=== PATIENT | female | born 1955 | race Caucasian/White ===

== ENCOUNTER 2019-02-20 08:53 | Day surgery (SDC) | payer BC, SELFPAY ==
[2019-02-20] VITALS (7 sets, daily range): BP systolic 94–130; BP diastolic 57–83; PULSE 74–86; RESP 16–18; TEMP 36.3–36.7; O2SAT 94–97; BMI 38.3
--- NOTE | 2019-02-20 | BRBX_PTH ---
PATIENT: ADENIKE PARRISH LOC: [facility] [place] U#:[id number] AGE/SX: 63/F ROOM: RE02/20/[address]: Dr. Lizz Gusman MD : [id number] BED: DIS: 02/20/2019 SPEC #: [id number] RECD: 02/20/19 13:28 STATUS: LISA REAutumn #: [id number] AYALA: 02/20/19 00:[address]: Lizz Gusman DEPT: SURGICAL PATHOLOGY RECD BY: Bruce George ENTERED: 02/20/19 13:29 SP TYPE: BREAST BX NOAH DR: Dr. Jake Castillo DO Tissues: Left breast, NOS Procedures: Surgery Specimen Level IV HEADER OPERATION: Left breast biopsy via wire localization PRE-OP DIAGNOSIS: Atypical ductal hyperplasia left breast TISSUE SUBMITTED: Left breast tissue MICROSCOPIC DIAGNOSIS Left breast, excision via wire localization: Focal intraductal hyperplasia with minimum atypia. Focal minimal fibrocystic changes. Focal changes consistent with previous biopsy site. Negative for malignancy. SJ:rg 02/23/19 COMMENT Case has been reviewed in consultation with Dr. Morgan who concurs with the above diagnosis. IDC:AM MICROSCOPIC DESCRIPTION Slides are reviewed. GROSS DESCRIPTION Received fresh then postfixed in formalin is one container labeled with the patient's name and designated left breast tissue. The specimen consists of an irregular fragment of yellow fatty tissue measuring 5 x 3.5 x 2.5 cm and weighing 17 grams. The specimen contains a metallic wire. No orientation is provided. The specimen is inked and serial sections reveal yellow cut surfaces without areas of distinct mass or fibrous streaks. The specimen is serially sectioned and totally submitted in 9 cassettes after additional fixation. / AM:sp 02/21/19 TC: CPT: 14353
--- NOTE | 2019-02-20 09:15 | BI_ITS ---
SURGICAL BREAST SPECIMEN RADIOGRAPH CLINICAL: Document presence of tissue clip marker in biopsy specimen. FINDINGS: Specimen shows presence of tissue clip marker. Electronically Signed: Darci Mcdermott, at 12:24 EDT , Service support , BI/Breast Biopsy Specimen
--- NOTE | 2019-02-20 10:50 | OP.PCM_ITS ---
Report of Operation Date of Procedure: 02/20/19 Pre-Operative Diagnosis: atypical ductal hyperplasia of left breast Post-Operative Diagnosis: same Surgery/Procedure Performed:: left breast biopsy via wire localization Description of Surgical Findings:: lesion in lower medial aspect of left breast Type of Anesthesia:: Local MAC Anesthesiologist: Ramya Ford Specimen's removed: left breast tissue Estimated Blood Loss (mL): minimal Fluids Replaced: 500 ml RL Description of Procedure: After informed consent was given, the patient was brought into the Breast Stereotactic Radiology suite. Appropriate time out protocol was followed. She was then placed in the prone position on the [place] stereotactic table. The patient?s left breast was placed in the opening at the head of the table. A process development manager compression mammogram was then obtained in the medial-lateral view. The marker clip that was previously placed was identified. Stereo pictures of the lesion were then taken for XYZ coordinates. The Kopans needle was then positioned where it would be entering into the patient?s breast. The skin at this site was then cleansed with a surgical skin preparation. The skin and subcutaneous tissues at this site were then infiltrated with 1% xylocaine. The Kopans needle was then positioned into the patient?s breast at the proper coordinates of depth. A process development manager film was obtained which revealed the wire in proper position. The patient was then placed in the supine position and the wire was taped into place. A unilateral mammogram in the CC and MLO view were then taken for use in the OR. The patient tolerated this portion of the procedure well and was brought to the AC awaiting surgery in the OR. The patient was then brought to the Operating Room. Appropriate time out protocol was followed. She was placed on the operating table in the supine position. A wire had already been placed in the stereotactic biopsy room in the radiology department as described above. The left breast with the wire in placed was then prepped with a sterile surgical skin preparation and sterile s urgical drapes were placed. The skin and subcutaneous tissues at the site of the breast lesion was then infiltrated with 1% xylocaine with epinephrine. A transverse skin incision was then made with a 15 blade scalpel in the medial lower aspect of the left breast. It was carried down through to the subcutaneous tissues. Hemostasis was controlled with electrocautery. The wire was then palpated out and brought into the wound from outside. The breast tissue surrounding the wire was then carefully palpated out and from the surrounding tissues using electrocautery. The breast tissue, once from the breast, was then forwarded to the radiology department, where a specimen mammogram revealed that the marker clip was within the specimen. The breast tissue was then forwarded to pathology for analysis. The wound cavity was carefully examined. No further suspicious tissue was palpated or visualized. Hemostasis was carefully controlled with electrocautery. The subdermal tissues were then approximated with vicryl suture. The incision was then reapproximated close using running monocryl suture. Cavilon and steristrips were then placed to reinforce the skin closure. A sterile dressing was then applied. The patient was then brought to the Recovery Room in stable condition. - Complications none noted - Admit VTE Documentation VTE Present on Admission: Yes VTE Mechan Device Prophylaxis: SCD's
[2019-02-20] MEDS: Cefazolin 2 GM in 0.9% Normal Saline 100 ML IV (10:51)
[2019-02-20] MEDS: Bupiv/Epi 0.25% 30 ML Vial (11:20)
--- NOTE | 2019-02-20 13:27 | DCINST_ITS ---
Discharge Diet: No Restrictions Discharge Activity: Return to Normal Activity, May not drive while taking narcotic pain medications. Additional Activity Instructions:: wear supportive bra during the day Call your doctor if your incision/area has: Continuous Slow Oozing, Foul Smelling Discharge Call your doctor if you observe: Fever of 101 or Higher Additional Dressing/Incision Instructions:: Leave dressing in place. May get wet in shower. Do not scrub. Do not soak - no tub baths/swimming. May apply ice to area as tolerated Additional Instructions: Recommended pain medication regimen: may take acetaminophen (Tylenol) 650 mg then in 3 hours take 600 mg ibuprofen (Motrin), then in 3 hours take 650 mg acetaminophen, then in 3 hours take 600 mg ibuprofen and so on for 1-2 days Take narcotic pain medication for breakthrough pain and at night Apply ice to area as tolerated Allergies/Adverse Reactions: Allergies doxycycline [From Vibramycin] Allergy (Verified 02/20/19 09:19) Hives sulfamethoxazole [From Bactrim] Allergy (Verified 02/20/19 09:19) Hives trimethoprim [From Bactrim] Allergy (Verified 02/20/19 09:19) Hives Medications to take at Discharge Bupropion HCl 100 mg PO BID 02/17/19 Hydrochlorothiazide 12.5 mg PO DAILY 02/17/19 Losartan Potassium 100 mg PO DAILY 02/17/19 Meloxicam 15 mg PO DAILY 02/17/19 Hydrocodone Bitart/Apap 5-325 [[place] 5MG-325MG] 1 tab PO Q8H PRN PRN 5 Days #15 tab 02/20/19 The following prescriptions were given: Hydrocodone Bitart/Apap 5-325 [[place] 5MG-325MG] 1 tab PO Q8H PRN PRN 5 Days #15 tab PRN Reason: Pain Prescription Printed Primary Care Physician: Jake Castillo DO [Primary Care Provider] - Please Follow Up With: Lizz Gusman MD - call When: to be seen in 7-10 days, please call for date and time, thank you
== END 2019-02-20 13:55 | disposition home or self-care (01) ==
LOC: SDC 08:54 → AC 08:56
PROVIDERS: Family Provider Student in an Organized Health Care Education/Training Program; PCP Student in an Organized Health Care Education/Training Program; Referring Provider Surgery; Visit Provider Surgery
PROC: (CPT 19081; principal; 2019-02-20 10:45)
DX: N60.92 Unspecified benign mammary dysplasia of left breast (principal); I10 Essential (primary) hypertension; E78.5 Hyperlipidemia, unspecified; E66.9 Obesity, unspecified; Z68.38 Body mass index [BMI] 38.0-38.9, adult; Z79.899 Other long term (current) drug therapy
CPT/HCPCS: 19081; 19281; 76098; 88305; J7120; J2405